=== PATIENT | male | born 1985 | race Caucasian/White ===

== ENCOUNTER 2019-01-12 09:48 | Day surgery (SDC) | payer BC ==
[~2019-01-12 09:48] MED LIST: Lactated Ringers 1,000 ML IV SCH
--- NOTE | 2019-01-12 10:25 | PCM.PREANE ---
Preanesthetic Assessment - Anesthesia/Transfusion/Family Hx Anesthesia History: No Prior Anesthesia Family History of Anesthesia Reaction: No Transfusion History: No Prior Transfusion(s) Intubation History: Unknown - Review of Systems General: No Symptoms Pulmonary: No Symptoms Cardiovascular: No Symptoms Gastrointestinal: Abdominal Pain, Hematochezia Neurological: No Symptoms Other: Reports: None - Physical Assessment Height: 5 ft 11 in Weight: 112.945 kg ASA Class: 2 Mental Status: Alert & Oriented x3 Airway Class: Mallampati = 2 Dentition: Reports: Normal Dentition, [place](s) (rt. upper x1, left lower x1) Thyro-Mental Finger Breadths: 3 Mouth Opening Finger Breadths: 3 ROM/Head Extension: Full Lungs: Clear to Auscultation, Normal Respiratory Effort Cardiovascular: Regular Rate, Regular Rhythm - Allergies Allergies/Adverse Reactions: Allergies Allergy/AdvReac Type Severity Reaction Status Date / Time No Known Allergies Allergy Verified 01/08/19 10:20 - Blood Blood Available: No - Anesthesia Plan Pre-Op Medication Ordered: None - Acknowledgements Anesthesia Type Planned: MAC Pt an Appropriate Candidate for the Planned Anesthesia: Yes Alternatives and Risks of Anesthesia Discussed w Pt/Guardian: Yes Pt/Guardian Understands and Agrees with Anesthesia Plan: Yes PreAnesthesia Questionnaire HEENT History: Reports: None Cardiovascular History: Reports: High Cholesterol Respiratory History: Reports: None Gastrointestinal History: Reports: Other (See Below) Other Gastrointestinal History: occasional heartburn Genitourinary History: Reports: None Musculoskeletal History: Reports: None Neurological History: Reports: None Psychiatric History: Reports: Anxiety Endocrine/Metabolic History: Reports: Obesity/BMI 30+ Hematologic History: Reports: None Immunologic History: Reports: None Oncologic (Cancer) History: Reports: None Dermatologic History: Reports: None - Past Surgical History Head Surgeries/Procedures: Reports: None HEENT Surgical History: Reports: None Cardiovascular Surgical History: Reports: None Respiratory Surgical History: Reports: None GI Surgical History: Reports: None Male Surgical History: Reports: None Endocrine Surgical History: Reports: None Neurological Surgical History: Reports: None Musculoskeletal Surgical History: Reports: None Oncologic Surgical History: Reports: None Dermatological Surgical History: Reports: None - SUBSTANCE USE Smoking Status *Q: Current Every Day Smoker (< 1/2 ppd, trying to quit - on Welbutrin) Tobacco Use Within Last Twelve Months: Cigarettes Recreational Drug Use History: No - HOME MEDS Home Medications: Home Meds atorvaSTATin Calcium [Atorvastatin Calcium] 20 mg PO BEDTIME 01/08/19 [History] buPROPion HCl [Wellbutrin SR] 150 mg PO BID 01/08/19 [History] - CURRENT (IN HOUSE) MEDS Current Meds: Current Medications Lactated Ringer's (Ringers, Lactated) 1,000 mls @ 125 mls/hr IV ASDIRECTED RENETTA
[2019-01-12] MEDS ORDERED: Ondansetron 4 MG/2 ML SDV ONE (10:46)
[2019-01-12] MEDS ORDERED: Midazolam 1 MG/ML 2 ML SDV ONE (10:46)
[2019-01-12] MEDS ORDERED: fentaNYL 100 MCG/2 ML SDV ONE (10:46)
[2019-01-12] MEDS ORDERED: Propofol 200 MG/20 ML SDV ONE (10:46)
--- NOTE | 2019-01-12 11:36 | PCM.OPNOTE ---
- General Post-Op/Procedure Note Date of Surgery/Procedure: 01/12/19 Operative Procedure(s): egd w bx. colonoscopy Findings: see dict [id number] Pre Op Diagnosis: anemia Post-Op Diagnosis: Same Anesthesia Technique: Moderate Sedation Primary Surgeon: Prosper Cottrell Pathology: egd bx Complications: None Condition: Good
--- NOTE | 2019-01-12 18:03 | OR ---
SURGEON: Prosper Cottrell MD DATE OF PROCEDURE: 01/12/2019 PREOPERATIVE DIAGNOSIS: Anemia. POSTOPERATIVE DIAGNOSES: EGD diagnosis is acid reflux and GERD. Colonoscopy diagnosis is hemorrhoids. PRIMARY SURGEON: Prosper Cottrell MD. PROCEDURE PERFORMED: EGD with biopsy and colonoscopy. DESCRIPTION OF PROCEDURE: EGD: The patient was taken to the endoscopy room, and with the ACIDIZER HELPER, Diprivan was administered. A well-lubricated EGD scope was gently inserted through the oropharynx, down the esophagus, passing through the gastroesophageal junction, into the stomach. The mucosa was examined upon the passage. Any etiology will be noted. Once in the stomach, we continued to advance to the distal antrum, passed through the pylorus into the second portion of the duodenum. Again, the mucosa was examined for any abnormality and etiology. The scope was then retrieved back to the stomach and then retroflexed to look at the fundus of the stomach. If a biopsy was indicated, we will biopsy the antrum, body, and gastroesophageal junction. The air will be sucked out while the scope is retrieved to reduce the patient's discomfort. The patient tolerated the procedure well. There were no intraoperative complications. Dr. Cottrell was present through the whole procedure. Prior to surgery, a time-out had been called, the patient identified, procedure identified and antibiotic administered. Colonoscopy: The patient was taken to the endoscopy room. A time out was called, patient identified, and procedure identified. Diprivan was then administrated. Patient went from awake to sleep, hearing doctor talking or door closing is normal. Perineum inspection and digital examination were then performed. A well-lubricated colonoscope was gently inserted through the rectum, advanced past the rectosigmoid junction, the descending colon, splenic flexure, transverse colon, hepatic flexure, ascending colon, arrived to the cecum. Cecum was identified as dictated in the finding. Then the scope was carefully withdrawn while attention was paid to the mucosal surface for any abnormality. Air will be sucked out during the scope withdrawal. At the rectum, retroflexed to examine any rectal diseases, fistula or hemorrhoids. Patient tolerated procedure well. There were no intraoperative complications, and Dr. Cottrell was present throughout the whole procedure. FINDINGS: EGD findin. The patient is easily sedated with ACIDIZER HELPER and Diprivan. Patient is soundly snoring. 2. Oropharynx and proximal esophagus are free of disease, inflammation, or stricture. GE junction at 40 shows significant salmon-colored change, flame-like change consistent with significant GERD, and stomach rugae is normal in appearance and some bile in the system. Antrum looks fine. Duodenum is grossly normal. Scope retrieved back to the stomach and retroflexed to look at the fundus of stomach. There is no hiatal hernia. Biopsy done at antrum, body, GE junction at 40, and sucked out the gas while scope pulling out. Colonoscopy findin. The patient is easily sedated with ACIDIZER HELPER and Diprivan, the patient is soundly snoring. 2. Bowel prep is marginally acceptable to almost unacceptable, full of semi- formed stool and semi-liquid stool coating the mucosa requiring almost continuous irrigation. Still cannot get rid of the stool covering the mucosa suggests this is a compromised study. On the next colonoscopy, the patient would need to do an extended bowel prep. 3. Colon rather straightforward. Cecum indicated by ileocecal fold, one-to- one indentation, light emittance, and appendix orifice. Mucosa examined upon scope pulling out on this compromised study with continuous irrigation, the patient does not have diverticulosis, polyp, mass, growth, inflammation, stricture, ulceration, AV malformation, bleeding, none of those. Patient has mild external hemorrhoid and mild internal hemorrhoids. The patient would benefit from repeat colonoscopy in 2 to 3 years from today because of the marginally acceptable bowel prep or if clinically indicated otherwise. NAY / OTILIA /[id number]
== END 2019-01-12 12:25 | disposition home or self-care (01) ==
LOC: MW.SDS 09:48
PROVIDERS: ATTEND Surgery
DX: K21.0 Gastro-esophageal reflux disease with esophagitis (principal); K64.4 Residual hemorrhoidal skin tags; E78.5 Hyperlipidemia, unspecified; F17.210 Nicotine dependence, cigarettes, uncomplicated; E66.9 Obesity, unspecified; Z68.34 Body mass index [BMI] 34.0-34.9, adult
CPT/HCPCS: 43239; 45378; J2001; J2250; J2405; J2704; J3010; J7120